=== PATIENT | female | born 1985 | race Caucasian/White ===

== ENCOUNTER → 2019-10-24 | Outpatient (CLI) | payer OTHER ==
--- NOTE | 2019-10-24 13:23 | Diagnostic Imaging Report ---
INDICATION: Palpable lump left breast. No prior mammograms are available for comparison. 2-D and 3-D bilateral diagnostic mammography was performed with CAD. BB marker was placed at the area of palpable abnormality in the left breast. Both breasts are heterogeneously dense, limiting the sensitivity of mammography. A small circumscribed densities in the inferior and outer right breast approximately 3 cm from the nipple is noted. These may represent cysts. No other masses are seen. No suspicious microcalcifications are identified. Axillae are unremarkable. IMPRESSION: BI-RADS 0 1. Circumscribed nodules lower outer right breast anterior depth. Further evaluation of this area as well as the area of palpable abnormality in the left breast is recommended with ultrasound and will be performed today. ACR BI-RADS Category 0: Incomplete. (Needs additional imaging evaluation). Result letter will be mailed to the patient. Note: At least 10% of breast cancer is not imaged by mammography. Dictated by: Dictated on workstation # [id number]
--- NOTE | 2019-10-24 14:17 | Diagnostic Imaging Report ---
INDICATION: Palpable lump left breast as well as densities in the right breast. Studies performed for further evaluation. Correlation is made with diagnostic mammogram earlier same day. Sonographic interrogation of the area of palpable abnormality left breast was performed. There are 2 circumscribed hypoechoic nodules at the area of the lump in the upper inner left breast. Largest is approximately 1.4 x 0.6 x 1.0 cm. A smaller nodule adjacent to this measures 0.6 x 0.4 x 0.6 cm. These are smoothly marginated. No internal vascularity is present. No posterior acoustic shadowing is present. These may represent fibroadenomas. In addition, at the 11 o'clock location of the left breast there is a simple cyst measuring 1.2 x 1.3 x 0.8 cm. On evaluation of the right breast in the lower outer aspect, there is a complex, septated cystic mass at the 7 o'clock location, 3 cm from the nipple measuring 3.7 x 0.7 x 2.5 cm. No internal vascularity is present. No other masses are seen. IMPRESSION: 1. Circumscribed hypoechoic solid-appearing nodules in the upper inner left breast at the area of palpable abnormality. These may represent fibroadenomas. Even so, followup left breast ultrasound in 6 months is recommended to show continued stability. 2. Complex septated cystic mass lower outer right breast corresponding to mammographic densities. This too could be evaluated in 6 months with ultrasound to show stability or resolution. BI-RADS Category 3 ACR BI-RADS Category 3: Probably benign findings. Result letter will be mailed to the patient. Note: At least 10% of breast cancer is not imaged by mammography. Dictated by: Dictated on workstation # [id number]
== END ==
LOC: RAD 13:45
PROVIDERS: ATTEND Nurse Practitioner Family
DX: N63.22 Unspecified lump in the left breast, upper inner quadrant (principal); N63.13 Unspecified lump in the right breast, lower outer quadrant
CPT/HCPCS: 76642; 77066; G0279; 77062

== ENCOUNTER → 2021-07-27 | Outpatient (CLI) | payer SELFPAY ==
[~2021-07-27] VITALS: Ht 157.5 cm; Wt 64.0 kg
[~2021-07-27] MED LIST: BUSP15TA60 PO; NAPR-1070 PO
== END | disposition home or self-care (01) ==
LOC: PREOP 06:38
PROVIDERS: ATTEND Surgery
DX: Z01.818 Encounter for other preprocedural examination (principal)

== ENCOUNTER → 2021-08-02 | Day surgery (SDC) | payer OTHER ==
[2021-08-02] VITALS (12 sets, daily range): BP systolic 90–123; BP diastolic 51–74
[~2021-08-02] VITALS: Ht 157.5 cm; Wt 64.0 kg
[~2021-08-02] MED LIST changes: +BUP/EPI 0.5% 1:200,000 (SENSORCAINE) 30 ML VIAL ONE; +GLYCOPYRROLATE 0.2 MG/ML (ROBINUL) 2 ML VIAL ONE; +HYDROmorphone 2 MG/ML VIAL (DILAUDID) IV ONE; +LIDOCAINE PF 2% 5 ML (XYLOCAINE) VIAL ONE; +MIDAZOLAM 2 MG/2 ML (VERSED) VIAL ONE; +NEOSTIGMINE 3 MG/3 ML VIAL ONE; +ONDANSETRON 4 MG/2 ML (SDV) Z0FRAN IVP PRN; +ONDANSETRON 4 MG/2 ML (SDV) Z0FRAN ONE; +ROCURONIUM 50 MG/5 ML (ZEMURON) VIAL IV ONE; +SEVOFLURANE (ULTANE) 15 ML INHAL SOLN ONE; +ceFAZolin 2 GM IV Premixed 50 ML IV ONE; +diphenhydrAMINE 50 MG/ML INJ (BENADRYL) IVP ONE; +diphenhydrAMINE 50 MG/ML INJ (BENADRYL) ONE; +fentaNYL INJ 100 MCG/2 ML AMP ONE; +morphine INJ 10 MG/ML 1ML (SYR OR VIAL) IVP ONE; +proPOfol 200 MG/20 ML (DIPRIVAN) VIAL IV ONE
[2021-08-02] MEDS: LACTATED RINGERS 1,000 ML IV PRN ×2 (10:30→13:22)
--- NOTE | 2021-08-02 12:56 | Progress Note-Pre Operative ---
Pre-Operative Progress Note H&P Reviewed The H&P was reviewed, patient examined and no changes noted. Time Seen by Provider: 11:13 Date H&P Reviewed: August 02, 2021 Time H&P Reviewed: 11:13 Pre-Operative Diagnosis: Incarcerated right femoral hernia, site marked MONIQUE MEJIA DO August 02, 2021 12:56
--- NOTE | 2021-08-02 13:03 | Progress Note-Post Operative ---
Post-Operative Progess Note Surgeon (s)/Hogshead Roller (s) Surgeon MONIQUE MEJIA DO Hogshead Roller: Brendon Pre-Operative Diagnosis Incarcerated right femoral hernia, site marked Post-Operative Diagnosis same plus direct inguinal hernia Procedure & Operative Findings Date of Procedure 08/02/21 Procedure Performed/Findings Laparoscopic Right Femoral herniarraphy with mesh placement - Robotically Laparoscopic right inguinal hernia After informed consent was obtained, the patient was brought to the operating room and placed on the operating table in a supine position. She was sterilely prepped and draped in a normal fashion. Local lidocaine was used to infiltrate the skin above the umbilicus. I made an incision with #11 blade, carried down to the skin into subcutaneous tissue and then deepened down the subcutaneous tissue with Bovie electrocautery down to the fascia. Fascia was incised with Bovie electrocautery and bluntly entered the abdomen, swept a finger around, placed 0 Vicryl [id number] suture and placed limited trocar port under direct visualization. Created pneumoperitoneum, able to visualize a right direct inguinal hernia and took a picture of this and then placed two 8 mm ports about 10 cm on either side of the midline port using a local lidocaine, #11 blade for stab incision and then advanced the robotic port under direct visualization. Once this was in, I then placed the patient in Trendelenburg and then placed the working instruments, the fenestrated bipolar and the scissors. Looked on the left side and did not see any signs of inguinal hernia. I could see a direct hernia defect on the right side. Next, I came across the peritoneum approximately 8 cm away from the hernia defect, going across laterally starting lateral about 17cm and cutting toward the median umbilical ligament. I then carefully dissected the visceral peritoneum away and down and then in the midline, went through the parietal side and dissected down to the pubic tubercle, dissecting this down carefully pushing the peritoneum away, I was able to then visualize the pubic tubercle and Ace's ligament. I went 2 cm posterior and at this point, we then had a critical view of the dissection, able to dissect 2 cm across the midline to the right side, 2 cm posterior to the Ace's ligament, able to then parietalize the round ligament off of the peritoneum right at the groove between Ace's and iliac vein and able to dissect, make sure there was no peritoneum between those two. I found a femoral hernia with a large amount of fat in it; able to carefully pull this out of the femoral space. Then I could visualize the indirect and direct hernia space; direct hernia had been reduced. Next I elected to cut the round ligament to help release the peritoneum. I could clearly see the inguinal canal, femoral hernia and the indirect space. Next I carried the posterior lateral dissection all the way out and then placed a 12 x 17 Midwieght Bard 3DMax mesh. It laid in nicely, covered the hernia defect and the rest of the area. It was above the peritoneum, sutured it at the pubic tubercle with a 3-0 Vicryl suture and tied this off. This appeared to lay in very nicely. I then brought down the pneumoperitoneum to about 8 mmHg and then started closing the peritoneum. Started laterally and used a 2-0 V-lock barbed suture to start a running stitch to close the peritoneum. This was closed nicely, took a picture of the closure at this point, then removed both needles had switched to a suture moving van driver from the scissors. The patient was then placed back supine, removed all ports under direct visualization, allowed pneumoperitoneum to escape and then closed the supraumbilical incision, closing the fascia with 0 Vicryl suture previously placed. Copiously irrigated all incisions and then closed the two small 8 mm incisions with two interrupted 4-0 undyed Monocryl subcuticular stitches and closed the supraumbilical incision with three interrupted undyed Monocryl subcuticular stitch. Area was cleaned and dried. Dermabond was placed. The patient tolerated the procedure. The sponge, instrument and needle counts were correct at the end of the case. Dr. Olivas assisted during this surgery by making incisions, closing incisions, helping to identify anatomy and passing/retrieving suture and needles. Anesthesia Type GET Estimated Blood Loss Estimated blood loss (mL): scant Specimens/Packing Specimens Removed none MONIQUE MEJIA DO August 02, 2021 13:03
--- NOTE | 2021-08-02 13:04 | Discharge Inst-Surgical ---
Discharge Inst-Surgical Depart Medication/Instructions New, Converted or Re-Newed RX: Other (use home meds) Patient Instructions Follow up Appt: Make appointment for 1 week. [phone] Instructions: No lifting greater than 20 pounds. No strenuous activity. May shower in 24 hours, no tub bath or soaking. Use incentive spirometer at home as directed. No Smoking Skin/Wound Care: May remove bandages in am. You need to leave the Dermabond on incision it will fall off on it's own. Symptoms to Report: Appetite Changes, Extremity Discoloration, Numbness/Tingling, Swelling Increased, Bleeding Excessive, Eyesight Changes, Pain Increased, Urine Color Change, Constipation(Persistent), Fever over 101 degree F, Pain/Pressure in chest, Urinating Difficulty, Cough Up/Vomit Blood, Heart Beat Irreg/Pounding, Pain/Pressure in jaw, Cramps in feet or legs, Lightheadedness, Pain/Pressure in shoulder, Diarrhea(Persistent), Memory Changes Suddenly, Questions/Concerns, Weight gain consecutive days, Dizziness/Fainting, Nausea/Vomiting, Shortness of Breath, Weight gain over 2 pounds If questions or concerns contact your physician Or seek help at emergency department. Activity Activity as Tolerated: Yes Activity Instructions: Avoid Stress to Incision Driving Instructions: No Driving/Refer to Dr. Rowe Discharge Diet: No Restrictions Diet After 24 Hours: Clear Liquid if Nauseous If Any Problems/Questions/Issu: Contact Your Physician, Go to Emergency Room Skin/Wound Care Infection Signs and Symptoms: Increased Redness, Foul Odor of Wound, Increased Drainage, Skin Itchy or Has a Rash, Increased Swelling, Temperature Above 101 F Wound Care Comment: heating pad to shoulder or neck tonight for pain Bathing Instructions: Shower Stitches/Jim/Dermabond Dis: Dermabond Ice Pack: Ice On and Off Site MONIQUE MEJIA DO August 02, 2021 13:04
--- NOTE | 2021-08-02 15:18 | Anesthesia-General Post-Op ---
General Patient Condition Mental Status/LOC: Same as Preop Cardiovascular: Satisfactory Nausea/Vomiting: Absent Respiratory: Satisfactory Pain: Controlled Complications: Absent Post Op Complications Complications None Follow Up Care/Instructions Patient Instructions None needed. Anesthesia/Patient Condition Patient Condition Patient is doing well, C/O abd pain which is to be expected, stable vital signs, no apparent adverse anesthesia problems. GODWIN CASSIDY DO August 02, 2021 15:18
== END ==
LOC: SDC 09:51
PROVIDERS: ATTEND Surgery
DX: K41.30 Unilateral femoral hernia, with obstruction, without gangrene, not specified as recurrent (principal); K40.90 Unilateral inguinal hernia, without obstruction or gangrene, not specified as recurrent; Z87.891 Personal history of nicotine dependence
CPT/HCPCS: 49650; 49659; 84703; 87081; C1781